=== PATIENT | male | born 1980 | race Hispanic/Latino ===

== ENCOUNTER 2017-10-02 21:25 | Emergency (ER) | payer SELFPAY ==
[2017-10-02] MEDS ORDERED: Fluorescein Opthalmic Strip ONE (21:57)
[2017-10-02] MEDS ORDERED: Proparacaine 0.5% Opth 15 ML BOT ONE (21:57)
[2017-10-02] MEDS ORDERED: HYDROcodone/Acetaminophen 10/325 mg Tablet ONE (22:10)
== END 2017-10-02 22:35 | disposition home or self-care (01) ==
LOC: ERS 21:25
DX: S05.02XA Injury of conjunctiva and corneal abrasion without foreign body, left eye, initial encounter (principal); F17.210 Nicotine dependence, cigarettes, uncomplicated; X58.XXXA Exposure to other specified factors, initial encounter
CPT/HCPCS: 99283